=== PATIENT | female | born 2000 | race Two or more races ===

== ENCOUNTER 2023-01-29 06:23 | Emergency (ER) | payer OTHER ==
[~2023-01-29] VITALS: Ht 154.9 cm; Wt 85.7 kg
[2023-01-29 09:06] LABS: HEMATOCRIT 41.7 % (36.0-45.00); HEMOGLOBIN 14.4 g/dL (12.0-15.00); MEAN CELL VOLUME 88.1 fL (80.00-100.00); MEAN CORPUSCULAR HEMOGLOBIN 30.5 pg (27.00-32.0); MEAN CORPUSCULAR HGB CONC 34.6 g/dl (32.0-36.0); PLATELET COUNT 256 K/uL (150-450); RED BLOOD COUNT 4.73 M/uL (4.00-6.00); RED CELL DISTRIBUTION WIDTH 13.7 % (11.5-14.5)
[2023-01-29 11:51] LABS: CALCIUM 9.3 mg/dL (8.5-10.1); CREATININE SERUM 0.45 mg/dL (0.55-1.02); GFR 174.23; POTASSIUM 3.47 mEq/L (3.5-5.1)
== END 2023-01-29 11:16 | disposition home or self-care (01) ==
LOC: ER 06:23
PROVIDERS: General Practice
DX: O36.80X0 Pregnancy with inconclusive fetal viability, not applicable or unspecified (principal); O26.859 Spotting complicating pregnancy, unspecified trimester; Z3A.11 11 weeks gestation of pregnancy

== ENCOUNTER 2023-04-14 16:30 | Outpatient (CLI) | payer OTHER | END 2023-04-14 16:33 | disposition home or self-care (01) | LOC: PRENATAL 16:30 | PROVIDERS: ATTEND Obstetrics & Gynecology Maternal & Fetal Medicine | DX: O35.3XX0 Maternal care for (suspected) damage to fetus from viral disease in mother, not applicable or unspecified (principal); O44.00 Complete placenta previa NOS or without hemorrhage, unspecified trimester; Z3A.22 22 weeks gestation of pregnancy ==

== ENCOUNTER 2023-06-09 18:08 | Outpatient (CLI) | payer OTHER ==
[~2023-06-09] VITALS: Ht 154.9 cm; Wt 90.3 kg
[2023-06-09] MEDS ORDERED: RINGERS SOLUTION,LACTATED 1,000 ML IV SCH (18:30)
[2023-06-09] MEDS ORDERED: PRENATAL TABLE1 EAC1 PO (18:39)
[2023-06-09 18:52] LABS: HEMATOCRIT 34.8 % (36.0-45.00); HEMOGLOBIN 11.8 g/dL (12.0-15.00); MEAN CELL VOLUME 86.6 fL (80.00-100.00); MEAN CORPUSCULAR HEMOGLOBIN 29.3 pg (27.00-32.0); MEAN CORPUSCULAR HGB CONC 33.8 g/dl (32.0-36.0); PLATELET COUNT 212 K/uL (150-450); RED BLOOD COUNT 4.02 M/uL (4.00-6.00); RED CELL DISTRIBUTION WIDTH 14.7 % (11.5-14.5)
[2023-06-09 18:53] LABS: PH,URINE 6.5 (5.0-8.0); URINE APPEARANCE Clear; URINE BILIRRUBIN Negative (NEGATIVE); URINE BLOOD Negative; URINE COLOR Yellow; URINE GLUCOSE Negative (NEGATIVE); URINE LEUKOCYTE Small; URINE NITRATE Negative; URINE PROTEIN Negative (NEGATIVE)
[2023-06-09 18:56] LABS: URINE BACTERIA 3343.7 uL (0.0-1933); URINE EPITHELIAL CELLS 38.9 uL (0.0-38.8); URINE RBC 46.2 uL (0.0-20.8); URINE WBC 56.7 uL (0.0-23.2)
[2023-06-09 19:20] LABS: ALBUMIN 2.9 gm/dL (3.4-5.0); BILIRUBIN TOTAL 0.2 mg/dL (0.3-1.2); CREATININE SERUM 0.5 mg/dL (0.55-1.02); GFR 154.28; GLOBULINA 3.2 G/DL (2.4-3.5); POTASSIUM 3.47 mEq/L (3.5-5.1); TOTAL PROTEIN 6.1 gm/dL (6.4-8.2)
[2023-06-10] MEDS ORDERED: CEFAZOLIN SODIUM 1,000 MG VIAL ONE (01:59)
== END 2023-06-10 09:16 | disposition home or self-care (01) ==
LOC: OBS/DEL 18:08
PROVIDERS: ATTEND Specialist
DX: O26.893 Other specified pregnancy related conditions, third trimester (principal); O09.613 Supervision of young primigravida, third trimester; Z3A.30 30 weeks gestation of pregnancy; T14.90XA Injury, unspecified, initial encounter; V49.9XXA Car occupant (driver) (passenger) injured in unspecified traffic accident, initial encounter; Y93.89 Activity, other specified; Y92.89 Other specified places as the place of occurrence of the external cause

== ENCOUNTER 2023-06-23 12:55 | Outpatient (CLI) | payer OTHER ==
[~2023-06-23 12:55] MED LIST: PRENATAL TABLE1 EAC1 PO
== END 2023-06-23 12:57 | disposition home or self-care (01) ==
LOC: PRENATAL 12:55
PROVIDERS: ATTEND Obstetrics & Gynecology Maternal & Fetal Medicine
DX: O26.849 Uterine size-date discrepancy, unspecified trimester (principal); O36.8199 Decreased fetal movements, unspecified trimester, other fetus; Z3A.32 32 weeks gestation of pregnancy